=== PATIENT | female | born 1965 | race Caucasian/White ===

== ENCOUNTER 2018-01-29 07:08 | Day surgery (SDC) | payer OTHER | END 2018-01-29 09:29 | disposition home or self-care (01) | LOC: FASU-ENDO 07:08 | PROC: 0DBK8ZX Excision of Ascending Colon, Via Natural or Artificial Opening Endoscopic, Diagnostic (ICD-10-PCS; principal; 2018-01-29) | PROC: 0DBC8ZX Excision of Ileocecal Valve, Via Natural or Artificial Opening Endoscopic, Diagnostic (ICD-10-PCS; 2018-01-29) | CPT/HCPCS: 84703; 88305-TC ==